=== PATIENT | female | born 1960 | race Caucasian/White ===

== ENCOUNTER 2017-10-01 20:58 | Inpatient (IN) | payer OTHER ==
[~2017-10-01] VITALS: Ht 160 cm; Wt 95.1 kg
--- NOTE | ~2017-10-01 | HC ---
[facility] [place] [address] [place] [address] CONSULTATION Name: TINA GARY Room #: 204-P [facility] IN ..#: [id number] Admission: 10/01/17 Attend Phys: Mark Rodriguez MD Discharge: 10/02/17 Date of : 62 Report #: [id number] THIS REPORT FOR: //name// CC: Froy Thornee Chad DATE OF SERVICE: 10/02/2017 INDICATION: Chest pain. HISTORY OF PRESENT ILLNESS: This is a 56-year-old female with a history of CAD, hypertension, obesity, hyperlipidemia, tobacco use, presenting with chest pain. Over the last several days, she has been experiencing a sharp pain on the left side of her chest, left neck and shoulder area. It seems to occur at rest and resolves within 5 minutes. There are no alleviating or aggravating factors. It is not related to physical exertion. There is no history of fever, chills or nausea. PAST MEDICAL HISTORY: Cardiac catheterization in April 2015, revealed occluded RCA with collateral filling of the distal segment. There is mild disease in the LAD and [id number] disease in the left circumflex artery. History of hypertension, hypercholesterolemia, diabetes mellitus, chronic tobacco use. ALLERGIES: SULFA. MEDICATIONS: At home include Lipitor 40 mg, Toprol-XL 25 mg, metformin, oxycodone, Imdur 60 mg, aspirin once a day, amlodipine and insulin. SOCIAL HISTORY: Smokes half a pack of cigarettes per day. FAMILY HISTORY: Negative for premature CAD. REVIEW OF SYSTEMS: A full 10-point review of systems performed, only the pertinent positives and negatives are described in the HPI. PHYSICAL EXAMINATION: VITAL SIGNS: Blood pressure is 140/80, heart rate is 60 beats per minute. GENERAL APPEARANCE: An overweight female in no acute distress. HEENT: Normocephalic, atraumatic. Sclerae are anicteric. ENT: Oral mucosa moist. NECK: Supple. LUNGS: Clear to auscultation. CARDIAC: Regular rate and rhythm, S1, S2 positive. ABDOMEN: Soft, nontender. [facility] [address] [place] [address] CONSULTATION Name: TINA GARY Room #: 204-P [facility] IN ..#: [id number] Admission: 10/01/17 Attend Phys: Mark Rodriguez MD Discharge: 10/02/17 Date of : 62 Report #: [id number] EXTREMITIES: No cyanosis. Trace edema. ECG reveals sinus rhythm, low voltage. LABORATORY VALUES: Serial troponin levels are negative times 3. White count 10.5, hemoglobin 13.2, creatinine 0.8. ASSESSMENT AND PLAN: 1. Chest pain syndrome, symptoms are atypical, may be related to musculoskeletal or neuropathy. Serial troponin levels are negative and the ECG does not show any acute ST segment changes. However, given her cardiac history, she will need to undergo a stress test. Since she remains stable, she can be discharged and follow up as an outpatient. 2. Coronary artery disease, continue with aspirin. 3. Hypertension, continue with medications. 4. Hypercholesterolemia, continue with statin therapy. 5. Tobacco use, complete smoking cessation is advised. <ELECTRONICALLY SIGNED> By: Juan M Garcia MD 10/03/17 0753 [id number] Juan M Garcia MD /nt
--- NOTE | ~2017-10-01 | 2DMMODE ---
[facility] [address] [place] [address] 2 D/M-MODE ECHOCARDIOGRAM Name: TINA GARY Room #: 204-P [facility] IN .Amina#: [id number] Admission: 10/01/17 Attend Phys: Mark Rodriguez MD Discharge: 10/02/17 Date of : 62 Date of Service: 10/03/17 0749 Report #: [id number] THIS REPORT FOR: //name// APPROVED REPORT Study performed: 10/02/2017 09:53:00 EXAM: Comprehensive 2D, Doppler, and color-flow Echocardiogram Patient Location: Bedside Room #: 204 Status: on-call BSA: 1.97 HR: 67 bpm BP: 147/83 mmHg Rhythm: NSR Other Information Study Quality: Good Risk Factors: Cardiac Risk Factors: Hyperlipidemia, HTN, Smoking, FHX of CAD Indications CAD Chest Pain 2D Dimensions LVEF(%): 67.46 (>50%) IVSd: 11.29 (7-11mm) LVOT Diam: 18.00 (18-24mm) LVDd: 44.27 mm PWd: 11.57 (7-11mm) Ascending Ao: 27.54 (22-36mm) LVDs: 27.77 (25-40mm) Aortic Root: 27.78 mm LV Single Plane 4CH: 60.09 % LV Single Plane 2CH: 68.31 % Logan's LVEF: 64.20 % Biplane EF: 66.3 % Volumes Left Atrial Volume (Systole) Single Plane 4CH: 55.64 mL Single Plane 2CH: 51.74 mL LA ESV Index: 30.00 mL/m2 Aortic Valve AoV Peak Geoff.: 1.45 m/s [facility] [place] [address] [place] [address] 2 D/M-MODE ECHOCARDIOGRAM Name: TINA GARY Room #: 204-P [facility]..#: [id number] Admission: 10/01/17 Attend Phys: Mark Rodriguez MD Discharge: 10/02/17 Date of : 62 Date of Service: 10/03/17 0749 Report #: [id number] AO Peak Gr.: 8.36 mmHg LVOT Max P.67 mmHg LVOT Max V: 1.19 m/s JUDY Vmax: 2.11 cm2 Mitral Valve E/A Ratio: 0.8 MV Decel. Time: 293.26 ms MV E Max Geoff.: 0.72 m/s MV A Geoff.: 0.90 m/s MV PHT: 85.04 ms IVRT: 69.20 ms TDI E/Lateral E': 9.00 E/Medial E': 12.00 Medial E' Geoff.: 0.06 m/s Lateral E' Geoff.: 0.08 m/s Pulmonary Valve PV Peak Geoff.: 1.05 m/s PV Peak Gr.: 4.37 mmHg Pulmonary Vein P Vein S: 0.55 m/s P Vein A: 0.28 m/s P Vein D: 0.29 m/s P Vein A Dur.: 161.5 msec P Vein S/D Ratio: 1.90 Tricuspid Valve TR Peak Geoff.: 1.98 m/s RAP Estimate: 7.00 mmHg TR Peak Gr.: 15.61 mmHg PA Pressure: 23.00 mmHg Left Ventricle The left ventricle is normal size. There is normal LV segmental wall motion. Borderline concentric left ventricular hypertrophy. Left ventricular systolic function is normal. The left ventricular ejection fraction is within the normal range. LVEF is 60-65%. Grade I - abnormal relaxation pattern. Right Ventricle The right ventricle is normal size. The right ventricular systolic function is normal. Atria The left atrium size is normal. The right atrium size is normal. Aortic Valve [facility] [address] [place] [address] 2 D/M-MODE ECHOCARDIOGRAM Name: TINA GARY Room #: 204-P [facility] IN M.R.#: [id number] Admission: 10/01/17 Attend Phys: Mark Rodriguez MD Discharge: 10/02/17 Date of : 62 Date of Service: 10/03/17 0749 Report #: [id number] The aortic valve is normal in structure. No aortic regurgitation is present. There is no aortic valvular stenosis. Mitral Valve There is mitral annular calcification. There is no mitral valve regurgitation noted. No evidence of mitral valve stenosis. Tricuspid Valve The tricuspid valve is normal in structure. Trace tricuspid regurgitation. Pulmonary artery pressure is 23 mmHg. Pulmonic Valve The pulmonary valve is normal in structure. There is no pulmonic valvular regurgitation. Great Vessels The aortic root is normal in size. IVC is normal in size and collapses with >50% inspiration Pericardium There is no pericardial effusion. <Conclusion> The left ventricle is normal size. Left ventricular systolic function is normal. Grade I - abnormal relaxation pattern. The right ventricle is normal size. The left atrium size is normal. The aortic valve is normal in structure. There is mitral annular calcification. Trace tricuspid regurgitation. Pulmonary artery pressure is 23 mmHg. <ELECTRONICALLY SIGNED> By: Juan M Garcia MD 10/03/17 0749 0749 0749 Juan M Garcia MD /INF
--- NOTE | ~2017-10-01 | EKG ---
[place] [address] [facility] [place] [address] ELECTROCARDIOGRAM REPORT Name: TINA GARY Room #: 204-P [facility] IN M.R.#: [id number] Admission: 10/01/17 Attend Phys: Mark Rodriguez MD Discharge: Date of : 62 Report #: [id number] THIS REPORT FOR: //name// [facility] ED Test Date: 2017-10-01 Test Time: 21:19:07 Pat Name: TINA GARY Department: Room: Gender: F Magnetizer: SURJIT : 1960 Requested By: Refugio Osborn Order Number: [id number] MD: Juan M Garcia Measurements Intervals [place] Rate: 68 P: 29 [place]: 195 QRS: 5 QRSD: 95 T: 10 QT: 422 QTc: 449 Interpretive Statements Sinus rhythm Low voltage, precordial leads Poor R-wave progression Compared to ECG 10/31/2015 18:27:52 Low QRS voltage now present Myocardial infarct finding now present Electronically Signed On 10-02-2017 11:36:26 CDT by Juan M Garcia [email or web address] <ELECTRONICALLY SIGNED> By: Juan M Garcia MD 10/02/17 1136 18 18 Juan M Garcia MD /EPI
[~2017-10-01 20:58] MED LIST: AMARYL2 MG; AMLODIPINE BESYL5 M1 PO; ASPIRIN325 PO; ATORVASTATIN CA40 MG PO; AVELOX 400 MG400 MG PO; B-100 COMPLEX1 EAC1 PO; BENICAR PO; BENZONATATE100 MG PO; BLACK COHOSH40 MG; CAYENNE450 MG PO; CINNAMON; GARLIC OIL1 EAC1; GLUCOPHAGE1000 MG PO; IMDUR 60 MG TAB60 M1 PO; LEVEMIR; LISINOPRIL5 MG PO; METHADONE PO; METOPROLOL SUCC25 M1 PO; MS CONTIN15 MG PO; MULTIVITAMINS PO; NORVASC10 MG PO; OMEPRAZOLE PO; OXYCODONE HCL15 MG PO; PANTOPRAZOLE SO40 M1 PO; VALIUM5 MG PO; VITCB500GO; ZOLOFT25 MG PO; asprin PO
[2017-10-01 21:03] VITALS: BP 153/82
[2017-10-01] MEDS ORDERED: AMLODIPINE BESY10 MG PO (21:07)
[2017-10-01 21:35] LABS: ABSOLUTE NEUTROPHILS 7.4 thou/uL (1.4-8.2); BASOPHILS 0.6 % (0.0-2.0); EOSINOPHILS 3.1 % (0.0-3.0); HEMATOCRIT 38.4 % (37.0-47.0); HEMOGLOBIN 13.3 gm/dL (12.0-15.0); LYMPHOCYTES 31.3 % (24.0-44.0); MCH 32.2 pg (26.0-34.0); MCHC 34.5 g/dL (28.0-37.0); MCV 93.3 fL (80.0-100.0); MONOCYTES 5.4 % (1.0-8.0); PLATELET COUNT 217 thou/uL (150-400); POLYS 59.6 % (36.0-66.0); RBC 4.12 mil/uL (4.20-5.00); RDW 13.6 % (10.5-14.5); WBC 12.5 thou/uL (4.0-11.0)
[2017-10-01 21:39] LABS: ANION GAP 9 mmol/L (7-16); BUN 25 mg/dL (7-18); CALCIUM 9.7 mg/dL (8.5-10.1); CHLORIDE 103 mmol/L (98-107); CO2 26 mmol/L (21-32); GLUCOSE 354 mg/dL (74-106); POTASSIUM 4.3 mmol/L (3.5-5.1); SODIUM 138 mmol/L (136-145)
[2017-10-01] MEDS ORDERED: LEVEMIR SUBQ (21:44)
[2017-10-01 21:48] LABS: TROPONIN-I < 0.04 ng/mL (<0.06)
[2017-10-02 00:02] VITALS: BP 149/75
[2017-10-02 03:02] LABS: HEMATOCRIT 38.6 % (37.0-47.0); HEMOGLOBIN 13.2 gm/dL (12.0-15.0); MCH 31.9 pg (26.0-34.0); MCHC 34.1 g/dL (28.0-37.0); MCV 93.4 fL (80.0-100.0); RBC 4.14 mil/uL (4.20-5.00); RDW 13.6 % (10.5-14.5); WBC 10.5 thou/uL (4.0-11.0)
[2017-10-02 03:11] LABS: CALCIUM 9.1 mg/dL (8.5-10.1); CREATININE 0.8 mg/dL (0.6-1.0); POTASSIUM 3.8 mmol/L (3.5-5.1)
[2017-10-02 03:34] LABS: CHOLESTEROL 138 mg/dL (<200); HDL CHOLESTEROL 29 mg/dL (>40); LDL CHOLESTEROL 74 mg/dL (<100); TC:HDL 4.8 Ratio (Not establshd); TRIGLYCERIDE 179 mg/dL (<150); VLDL 36 mg/dL (<40)
[2017-10-02 03:36] LABS: SERUM ASSESSMENT Clear
[2017-10-02 04:25] VITALS: BP 181/90
[2017-10-02 07:25] VITALS: BP 147/83
[2017-10-02 11:40] VITALS: BP 147/83
== END 2017-10-02 11:55 | disposition home or self-care (01) | DRG 303 ==
LOC: ER 20:58 → 2N 23:29 → EROBS 23:29 → 2N 10-02 00:04
PROVIDERS: Emergency Medicine; Nurse Practitioner Family
DX: I25.110 Atherosclerotic heart disease of native coronary artery with unstable angina pectoris (principal); I10 Essential (primary) hypertension; K21.9 Gastro-esophageal reflux disease without esophagitis; G89.29 Other chronic pain; M54.9 Dorsalgia, unspecified; E11.9 Type 2 diabetes mellitus without complications; E78.5 Hyperlipidemia, unspecified; F17.210 Nicotine dependence, cigarettes, uncomplicated; E78.00 Pure hypercholesterolemia, unspecified; E66.01 Morbid (severe) obesity due to excess calories; I25.2 Old myocardial infarction; Z88.2 Allergy status to sulfonamides; Z68.37 Body mass index [BMI] 37.0-37.9, adult; Z79.82 Long term (current) use of aspirin; Z79.899 Other long term (current) drug therapy

== ENCOUNTER → 2019-11-30 | Outpatient (CLI) | payer OTHER ==
[~2019-11-30] MED LIST changes: +AMLODIPINE BESY10 MG PO; +LEVEMIR SUBQ
== END ==
LOC: BC 10:38
PROVIDERS: ATTEND Family Medicine
DX: Z12.31 Encounter for screening mammogram for malignant neoplasm of breast (principal)

== ENCOUNTER → 2020-02-26 | Outpatient (CLI) | payer OTHER | LOC: LAB 09:24 | PROVIDERS: ATTEND Family Medicine | DX: U07.1 COVID-19 (principal) ==

== ENCOUNTER 2020-02-29 08:13 | Emergency (ER) | payer OTHER ==
[~2020-02-29] VITALS: Ht 157.5 cm; Wt 99.8 kg
[2020-02-29 09:16] LABS: ABSOLUTE NEUTROPHILS 4.6 thou/uL (1.4-8.2); BASOPHILS 0.4 % (0.0-2.0); EOSINOPHILS 1.5 % (0.0-3.0); HEMATOCRIT 33.4 % (37.0-47.0); HEMOGLOBIN 11.3 gm/dL (12.0-15.0); LYMPHOCYTES 23.4 % (24.0-44.0); MCH 31.1 pg (26.0-34.0); MCV 91.7 fL (80.0-100.0); MONOCYTES 7.1 % (1.0-8.0); PLATELET COUNT 180 thou/uL (150-400); POLYS 67.6 % (36.0-66.0); RBC 3.64 mil/uL (4.20-5.00); RDW 13.2 % (10.5-14.5); WBC 6.8 thou/uL (4.0-11.0)
[2020-02-29 09:23] LABS: ANION GAP 10 mmol/L (7-16); BUN 26 mg/dL (7-18); CHLORIDE 101 mmol/L (98-107); CO2 26 mmol/L (21-32); CREATININE 1.6 mg/dL (0.6-1.0); GLUCOSE 356 mg/dL (74-106); POTASSIUM 4.4 mmol/L (3.5-5.1); SODIUM 137 mmol/L (136-145)
[2020-02-29 09:33] LABS: ALBUMIN 3.7 g/dL (3.4-5.0); DIRECT BILIRUBIN 0.2 mg/dL (<0.1-0.2); SGOT 25 U/L (15-37); SGPT 43 U/L (30-65); TOTAL BILIRUBIN 0.6 mg/dL (0.2-1.0); TOTAL PROTEIN 7.5 g/dL (6.4-8.2); TROPONIN-I <0.06 ng/mL (<0.06)
[2020-02-29 09:40] LABS: URINE BILIRUBIN NEGATIVE (Negative); URINE BLOOD NEGATIVE (Negative); URINE CLARITY CLEAR; URINE COLOR YELLOW; URINE GLUCOSE-RANDOM* 3+ (Negative); URINE KETONES NEGATIVE (Negative); URINE LEUKOCYTES-REFLEX NEGATIVE (Negative); URINE NITRITE-REFLEX NEGATIVE (Negative); URINE PROTEIN (DIPSTICK) NEGATIVE (Negative); URINE SPECIFIC GRAVITY 1.025 (1.005-1.035); URINE UROBILINOGEN 0.2 E.U./dl (0.2-1.0)
[2020-02-29] MEDS ORDERED: MOBIC15 MG PO ×2 (11:05→11:40)
--- NOTE | 2020-02-29 11:38 | EKG ---
[facility] [place] [address] ELECTROCARDIOGRAM REPORT Name: TINA GARY Room #: [facility].#: [id number] Admission: 02/29/20 Attend Phys: Discharge: Date of : 62 Report #: [id number] THIS REPORT FOR: cc: Reji Bonilla MD, Rene P. MD Couchonnal, Luis F. MD ~ THIS REPORT FOR: //name// [facility] ED Test Date: 2020-02-29 Test Time: 09:20:29 Pat Name: TINA GARY Department: Room: Gender: F Android Framework Developer: [facility] : 1960 Requested By: Corinne Hernández Order Number: [id number] MD: Beto Doshi Measurements Intervals [place] Rate: 70 P: 40 [place]: 195 QRS: 11 QRSD: 94 T: 60 QT: 417 QTc: 450 Interpretive Statements Sinus rhythm Low voltage, precordial leads Compared to ECG 10/01/2017 21:19:07 Poor R-wave progression no longer present Electronically Signed On 02-29-2020 11:38:20 EXPERIMENTAL FLIGHT TEST MECHANIC by Beto Doshi [email or web address] <ELECTRONICALLY SIGNED> By: Beto Doshi MD 02/29/20 1138 9 9 Beto Doshi MD /EPI
[2020-02-29 11:40] VITALS: BP 114/65
== END 2020-02-29 11:40 | disposition home or self-care (01) ==
LOC: ER 08:13
PROVIDERS: Emergency Medicine
DX: U07.1 COVID-19 (principal); E86.0 Dehydration; M54.5 Low back pain; I10 Essential (primary) hypertension; K21.9 Gastro-esophageal reflux disease without esophagitis; E11.9 Type 2 diabetes mellitus without complications; I25.2 Old myocardial infarction; F41.0 Panic disorder [episodic paroxysmal anxiety]; F17.210 Nicotine dependence, cigarettes, uncomplicated; Z98.890 Other specified postprocedural states; Z79.899 Other long term (current) drug therapy; Z79.82 Long term (current) use of aspirin; Z79.4 Long term (current) use of insulin; Z88.2 Allergy status to sulfonamides

== ENCOUNTER 2020-03-04 09:00 | Emergency (ER) | payer OTHER ==
[~2020-03-04] VITALS: Ht 157.5 cm; Wt 99.8 kg
[~2020-03-04 09:00] MED LIST changes: +MOBIC15 MG PO
[2020-03-04 10:12] LABS: ABSOLUTE NEUTROPHILS 5.5 thou/uL (1.4-8.2); BASOPHILS 0.2 % (0.0-2.0); EOSINOPHILS 0.3 % (0.0-3.0); HEMATOCRIT 34.6 % (37.0-47.0); HEMOGLOBIN 11.9 gm/dL (12.0-15.0); LYMPHOCYTES 13.3 % (24.0-44.0); MCH 31.4 pg (26.0-34.0); MCHC 34.3 g/dL (28.0-37.0); MCV 91.6 fL (80.0-100.0); MONOCYTES 6.4 % (1.0-8.0); PLATELET COUNT 136 thou/uL (150-400); POLYS 79.8 % (36.0-66.0); RBC 3.78 mil/uL (4.20-5.00); RDW 13.8 % (10.5-14.5); WBC 6.9 thou/uL (4.0-11.0)
[2020-03-04 10:13] LABS: CALCIUM 8.4 mg/dL (8.5-10.1); CREATININE 1.3 mg/dL (0.6-1.0); POTASSIUM 4.3 mmol/L (3.5-5.1)
[2020-03-04 10:20] LABS: ALBUMIN 3.6 g/dL (3.4-5.0)
[2020-03-04 11:30] VITALS: BP 126/76
--- NOTE | 2020-03-04 11:34 | EKG ---
[facility] [place] [place] [address] ELECTROCARDIOGRAM REPORT Name: TINA GARY Room #: REG [facility]#: [id number] Admission: 03/04/20 Attend Phys: Discharge: Date of : 62 Report #: [id number] THIS REPORT FOR: cc: Reji Bonilla MD, Rene P. MD Santiago, Patrick MD [facility] ~ THIS REPORT FOR: //name// [facility] ED Test Date: 2020-03-04 Test Time: 11:33:17 Pat Name: TINA GARY Department: Room: Gender: F Piano Tuner: : 1960 Requested By: Rosendo Hinton Order Number: [id number] MD: Kishore Contreras Measurements Intervals [place] Rate: 91 P: 36 [place]: 168 QRS: -3 QRSD: 95 T: 84 QT: 386 QTc: 475 Interpretive Statements Sinus rhythm Low voltage, precordial leads Compared to ECG 02/29/2020 09:20:29 No significant changes Electronically Signed On 03-04-2020 11:34:14 ROLLING ATTENDANT by Kishore Contreras [email or web address] <ELECTRONICALLY SIGNED> By: Kishore Contreras MD, [facility] 03/04/20 1134 1133 113 Kishore Contreras MD, [facility] /EPI
== END 2020-03-04 11:49 | disposition home or self-care (01) ==
LOC: ER 09:00
PROVIDERS: Emergency Medicine
DX: R06.02 Shortness of breath (principal); I10 Essential (primary) hypertension; K21.9 Gastro-esophageal reflux disease without esophagitis; G89.29 Other chronic pain; M54.9 Dorsalgia, unspecified; E11.9 Type 2 diabetes mellitus without complications; I25.2 Old myocardial infarction; F17.210 Nicotine dependence, cigarettes, uncomplicated; Z79.899 Other long term (current) drug therapy; Z79.82 Long term (current) use of aspirin; Z79.4 Long term (current) use of insulin; Z88.2 Allergy status to sulfonamides

== ENCOUNTER → 2020-07-11 | Outpatient (CLI) | payer OTHER | LOC: SJCVCIMAG 08:05 | PROVIDERS: ATTEND Internal Medicine | DX: I82.432 Acute embolism and thrombosis of left popliteal vein (principal); I11.9 Hypertensive heart disease without heart failure; E78.5 Hyperlipidemia, unspecified; I25.10 Atherosclerotic heart disease of native coronary artery without angina pectoris; R60.9 Edema, unspecified; Z86.718 Personal history of other venous thrombosis and embolism; Z86.16 Personal history of COVID-19; Z86.711 Personal history of pulmonary embolism ==